=== PATIENT | female | born 1970 | race Caucasian/White ===

== ENCOUNTER → 2020-08-11 | Outpatient (CLI) | payer BC, OTHER ==
[~2020-08-11] MED LIST: FLUT12HF2 INH; FLUT9.9S NAS; MONT10TA96 PO; Mirena IUD VG; PROP10TA16 PO
== END | disposition home or self-care (01) ==
LOC: STAR 08:51
PROVIDERS: ATTEND Surgery
DX: Z20.828 Contact with and (suspected) exposure to other viral communicable diseases (principal); C50.211 Malignant neoplasm of upper-inner quadrant of right female breast
CPT/HCPCS: 87635

== ENCOUNTER 2020-08-16 14:49 | Outpatient (CLI) | payer OTHER ==
[2020-08-17] MEDS ORDERED: ONDA4TAB7 PO (10:50)
[2020-08-17] MEDS ORDERED: HYDR-3240 PO (10:50)
== END 2020-08-16 23:59 | disposition home or self-care (01) ==
LOC: RAD 14:49 → MERGE 15:15 → RAD 23:59
PROVIDERS: ATTEND Surgery
DX: C50.211 Malignant neoplasm of upper-inner quadrant of right female breast (principal); J45.909 Unspecified asthma, uncomplicated; M19.90 Unspecified osteoarthritis, unspecified site; E66.9 Obesity, unspecified; Z88.0 Allergy status to penicillin; Z91.048 Other nonmedicinal substance allergy status; Z72.89 Other problems related to lifestyle; Z79.899 Other long term (current) drug therapy; Z68.33 Body mass index [BMI] 33.0-33.9, adult; Z98.890 Other specified postprocedural states
CPT/HCPCS: 38792; A9541

== ENCOUNTER 2020-08-17 05:37 | Day surgery (SDC) | payer OTHER ==
[2020-08-11 09:59] VITALS: BP 120/82
[~2020-08-17] VITALS: Ht 157.5 cm; Wt 81.3 kg
[2020-08-17] MEDS ORDERED: BUPIVACAINE/PF 0.25% ONE (06:47)
[2020-08-17] MEDS ORDERED: ISOSULFAN BLUE 10 MG/ML, 5ML IV ONE (06:48)
[2020-08-17] MEDS ORDERED: EPINEPHRINE 1 MG/ML, 1ML ONE (06:48)
[2020-08-17] MEDS ORDERED: CHLORHEXIDINE 15 ML UDC MM ONE (07:00)
[2020-08-17] MEDS ORDERED: LACTATED RINGERS 1,000 ML IV SCH (07:00)
[2020-08-17] MEDS ORDERED: FENTANYL PF 250 MCG/5ML ONE (07:15)
[2020-08-17] MEDS ORDERED: MIDAZOLAM 1 MG/ML, 2ML ONE (07:15)
[2020-08-17] MEDS ORDERED: PROPOFOL 50 ML ONE ×2 (07:15→08:37)
[2020-08-17] MEDS ORDERED: DEXAMETHASONE 4 MG/ML, 1ML ONE (07:36)
[2020-08-17] MEDS ORDERED: CEFAZOLIN 1,000 MG ONE (07:36)
[2020-08-17] MEDS ORDERED: SUCCINYLCHOLINE 20 MG/ML, 10ML ONE (07:36)
[2020-08-17] MEDS ORDERED: ONDANSETRON 2MG/ML, 2ML ONE (08:22)
[2020-08-17] MEDS ORDERED: ROCURONIUM 10MG/ML,5ML ONE (08:22)
[2020-08-17] MEDS ORDERED: PROPOFOL 10 MG/ML, 20ML ONE (08:22)
[2020-08-17] MEDS ORDERED: DIAZEPAM 5 MG/ML, 2ML IVPush PRN (08:30)
[2020-08-17] MEDS ORDERED: HYDROmorphone 1 MG/ML, 1ML INJ IVPush PRN (08:30)
[2020-08-17] MEDS ORDERED: EPHEDRINE 50 MG/ML, 1ML IVPush PRN (08:30)
[2020-08-17] MEDS ORDERED: PROMETHAZINE 25 MG/ML, 1ML IV PRN (08:30)
[2020-08-17] MEDS ORDERED: ACETAMINOPHEN 325 MG TABLET PO PRN (08:30)
[2020-08-17] MEDS ORDERED: OXYcodone 5 MG/5 ML ORAL.SOL UDC PO PRN (08:30)
[2020-08-17] MEDS ORDERED: DIPHENHYDRAMINE 50 MG/ML, 1ML IVPush PRN (08:30)
[2020-08-17] MEDS ORDERED: EPHEDRINE 50 MG/ML, 1ML IM PRN (08:30)
[2020-08-17] MEDS ORDERED: LABETALOL 5MG/ML, 20ML IV PRN (08:30)
[2020-08-17] MEDS ORDERED: MEPERIDINE/PF 25MG/0.5ML IVPush PRN (08:30)
[2020-08-17] MEDS ORDERED: ONDANSETRON 2MG/ML, 2ML IVPush PRN (08:30)
[2020-08-17] MEDS ORDERED: FENTANYL PF 100 MCG/2ML IV PRN (08:30)
[2020-08-17] MEDS ORDERED: HYDR-3240 PO (10:50)
[2020-08-17] MEDS ORDERED: ONDA4TAB7 PO (10:50)
== END 2020-08-17 11:25 | disposition home or self-care (01) ==
LOC: SDC 05:37 → MERGE 07:30 → SDC 11:25
PROVIDERS: ATTEND Surgery
DX: C50.211 Malignant neoplasm of upper-inner quadrant of right female breast (principal); C77.3 Secondary and unspecified malignant neoplasm of axilla and upper limb lymph nodes; N60.81 Other benign mammary dysplasias of right breast; J45.909 Unspecified asthma, uncomplicated; M19.90 Unspecified osteoarthritis, unspecified site; E66.9 Obesity, unspecified; Z68.33 Body mass index [BMI] 33.0-33.9, adult; Z17.0 Estrogen receptor positive status [ER+]; Z79.899 Other long term (current) drug therapy; Z80.9 Family history of malignant neoplasm, unspecified; Z88.0 Allergy status to penicillin; Z90.49 Acquired absence of other specified parts of digestive tract
CPT/HCPCS: 19301; 19316; 38525; 76098; 81025; 88305; 88307; 88333; J0171; J0330; J0690; J1100; J2250; J2405; J2704; J3010; J7120

== ENCOUNTER → 2020-09-06 | Outpatient (CLI) | payer OTHER ==
[~2020-09-06] MED LIST changes: +HYDR-3240 PO; +OMNIPAQUE 350 MG/ML, 100ML BOTTLE ONE; +ONDA4TAB7 PO
== END | disposition home or self-care (01) ==
LOC: RAD 10:39
PROVIDERS: ATTEND Internal Medicine Hematology & Oncology
DX: C50.811 Malignant neoplasm of overlapping sites of right female breast (principal); K76.0 Fatty (change of) liver, not elsewhere classified; R23.4 Changes in skin texture
CPT/HCPCS: 71260; 74177; 78306; A9503; Q9967

== ENCOUNTER 2020-09-08 07:19 | Outpatient (CLI) | payer OTHER ==
[~2020-09-08 07:19] MED LIST changes: -OMNIPAQUE 350 MG/ML, 100ML BOTTLE ONE
== END 2020-09-08 23:59 | disposition home or self-care (01) ==
LOC: ROC 07:19
PROVIDERS: ATTEND Radiology Radiation Oncology
DX: C50.811 Malignant neoplasm of overlapping sites of right female breast (principal); C50.211 Malignant neoplasm of upper-inner quadrant of right female breast; E66.9 Obesity, unspecified; M19.90 Unspecified osteoarthritis, unspecified site; Z79.899 Other long term (current) drug therapy; Z98.890 Other specified postprocedural states; Z90.11 Acquired absence of right breast and nipple
CPT/HCPCS: 99214; G0463

== ENCOUNTER → 2020-09-21 | Outpatient (CLI) | payer OTHER ==
[~2020-09-21] MED LIST changes: +ABX; +ERGO500017 PO; +FLUT1BLS9 INH; +HYDR-1067 PO; -HYDR-3240 PO; +SULFAMETH/TRIMETH PO; +WIXELA INH
== END | disposition home or self-care (01) ==
LOC: STAR 09:45
PROVIDERS: ATTEND Anesthesiology
DX: Z20.822 Contact with and (suspected) exposure to COVID-19 (principal)
CPT/HCPCS: U0003

== ENCOUNTER 2020-10-05 07:08 | Day surgery (SDC) | payer OTHER ==
[~2020-10-05] VITALS: Ht 154.9 cm; Wt 81.0 kg
[~2020-10-05 07:08] MED LIST changes: +BUPIVACAINE/PF 0.5% ONE; +EPINEPHRINE 1 MG/ML, 1ML ONE; +HEPARIN 1,000 UNITS/ML, 10ML ONE; +MONT10TA17 PO; -MONT10TA96 PO
[2020-10-05 07:38] VITALS: BP 124/77
[2020-10-05] MEDS ORDERED: LIDOCAINE-MPF 1%, 2ML ONE (07:53)
[2020-10-05 07:54] LABS: HCG UR SG 1.018 (1.003-1.030)
[2020-10-05] MEDS ORDERED: LIDOCAINE-MPF 1%, 2ML INFIL ONE (08:00)
[2020-10-05] MEDS ORDERED: CHLORHEXIDINE 15 ML UDC MM ONE (08:00)
[2020-10-05] MEDS ORDERED: LACTATED RINGERS 1,000 ML IV SCH (08:00)
[2020-10-05] MEDS ORDERED: FENTANYL PF 250 MCG/5ML ONE (08:06)
[2020-10-05] MEDS ORDERED: MIDAZOLAM 1 MG/ML, 2ML ONE (08:06)
[2020-10-05] MEDS ORDERED: DEXAMETHASONE 4 MG/ML, 1ML ONE (08:44)
[2020-10-05] MEDS ORDERED: PROPOFOL 10 MG/ML, 20ML ONE (08:44)
[2020-10-05] MEDS ORDERED: CEFAZOLIN 1,000 MG ONE (08:44)
[2020-10-05] MEDS ORDERED: ONDANSETRON 2MG/ML, 2ML ONE (08:44)
[2020-10-05] MEDS ORDERED: SUCCINYLCHOLINE 20 MG/ML, 10ML ONE (08:44)
[2020-10-05] MEDS ORDERED: ONDA4TAB7 PO (09:38)
[2020-10-05] MEDS ORDERED: HYDR-1067 PO (09:38)
== END 2020-10-05 11:30 | disposition home or self-care (01) ==
LOC: OUT 07:08
PROVIDERS: ATTEND Surgery
DX: Z45.2 Encounter for adjustment and management of vascular access device (principal); C50.911 Malignant neoplasm of unspecified site of right female breast; J45.909 Unspecified asthma, uncomplicated; Z88.0 Allergy status to penicillin; Z88.8 Allergy status to other drugs, medicaments and biological substances; Z20.822 Contact with and (suspected) exposure to COVID-19; Z79.899 Other long term (current) drug therapy; Z72.89 Other problems related to lifestyle; Z82.49 Family history of ischemic heart disease and other diseases of the circulatory system; Z83.3 Family history of diabetes mellitus
CPT/HCPCS: 36561; 71045; 76937; 77001; 81025; C1769; C1788; J0171; J0330; J0690; J1100; J1644; J2250; J2405; J2704; J3010; J7120; U0003

== ENCOUNTER 2021-02-09 08:30 | Outpatient (CLI) | payer OTHER ==
[~2021-02-09 08:30] MED LIST changes: -BUPIVACAINE/PF 0.5% ONE; -EPINEPHRINE 1 MG/ML, 1ML ONE; -HEPARIN 1,000 UNITS/ML, 10ML ONE; -HYDR-1067 PO; +HYDR-2214 PO
== END 2021-02-09 23:59 | disposition home or self-care (01) ==
LOC: ROC 08:30
PROVIDERS: ATTEND Radiology Radiation Oncology
DX: C50.111 Malignant neoplasm of central portion of right female breast (principal); M85.89 Other specified disorders of bone density and structure, multiple sites; Z17.0 Estrogen receptor positive status [ER+]
CPT/HCPCS: 99212; G0463

== ENCOUNTER → 2021-03-12 | Outpatient (CLI) | payer OTHER ==
[~2021-03-12] MED LIST changes: +OMNIPAQUE 350 MG/ML, 100ML BOTTLE ONE
== END | disposition home or self-care (01) ==
LOC: CFH 13:12
PROVIDERS: ATTEND Internal Medicine Hematology & Oncology
DX: C50.811 Malignant neoplasm of overlapping sites of right female breast (principal); K76.0 Fatty (change of) liver, not elsewhere classified; R16.0 Hepatomegaly, not elsewhere classified; M51.37 Other intervertebral disc degeneration, lumbosacral region; M41.86 Other forms of scoliosis, lumbar region
CPT/HCPCS: 74177; Q9967

== ENCOUNTER 2021-05-09 09:02 | Outpatient (CLI) | payer OTHER ==
[~2021-05-09 09:02] MED LIST changes: -OMNIPAQUE 350 MG/ML, 100ML BOTTLE ONE
== END 2021-05-09 23:59 | disposition home or self-care (01) ==
LOC: ROC 09:02
PROVIDERS: ATTEND Radiology Radiation Oncology
DX: Z08 Encounter for follow-up examination after completed treatment for malignant neoplasm (principal); Z85.3 Personal history of malignant neoplasm of breast; Z17.0 Estrogen receptor positive status [ER+]
CPT/HCPCS: 99212; G0463